=== PATIENT | female | born 1985 | race Caucasian/White ===

== ENCOUNTER 2016-06-06 13:29 | Emergency (ER) | payer OTHER ==
[~2016-06-06] VITALS: Ht 165.1 cm; Wt 85.3 kg
[~2016-06-06 13:29] MED LIST: CGN1 PO; DIAZ10TA PO; HALO5TAB PO; INDSR/120 PO; NAPR1TAB9 PO; PROP40TA5 PO
[2016-06-06 13:32] VITALS: TEMP 36.9; Ht 165.1 cm; Wt 85.3 kg
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
[2016-06-06] MEDS ORDERED: PROP80CA PO (14:30)
[2016-06-06] MEDS ORDERED: CTP1CL PO (14:35)
[2016-06-06 17:50] VITALS: BP 97/72; PULSE 71; O2SAT 97
== END 2016-06-06 18:39 | disposition home or self-care (01) ==
LOC: C.EDB 13:30 → C.EDA 18:39
DX: F41.9 Anxiety disorder, unspecified (principal); R11.10 Vomiting, unspecified; F43.10 Post-traumatic stress disorder, unspecified

== ENCOUNTER 2016-07-03 03:08 | Emergency (ER) | payer OTHER ==
[~2016-07-03] VITALS: Ht 165.1 cm; Wt 88.9 kg
[~2016-07-03 03:08] MED LIST changes: -CGN1 PO; +CTP1CL PO; -HALO5TAB PO; -INDSR/120 PO; +PROP80CA PO
[2016-07-03 03:21] VITALS: BP 119/77; PULSE 86; TEMP 37.1; O2SAT 94; Ht 165.1 cm; Wt 88.9 kg
[2016-07-03] MEDS ORDERED: SODIUM CHLORIDE 0.9% 1000ML 1,000 ML IV STA (03:34)
[2016-07-03] MEDS ORDERED: ONDANSETRON INJ 2 MG/ML 2 ML VIAL IV STA (03:34)
[2016-07-03] MEDS ORDERED: KETOROLAC TROMETHAMINE 30 MG/ML VIAL IV STA (03:34)
--- NOTE | 2016-07-03 03:52 | EMERGENCY ROOM VISIT NOTE ---
History Report prepared by Georgetteibkenny: Joaquina Chris Under the Supervision of: Dr. Barrington Fernando D.O. First contact with patient: 03:26 Chief Complaint: ILLNESS Stated Complaint: VOMITING,DIARRHEA,DEHYDRATION History of Present Illness The patient is a 31 year old female who presents to the Emergency Room with complaints of multiple episodes of vomiting over the past few days. In the past 2 days she has vomited about 5-6 times. She notes that her vomiting episodes come on suddenly. She also complains of diarrhea over the past 4 days. The patient has a close acquaintance with similar symptoms. Source of History: patient Onset: a few days ago Quality: other (sudden onset episodes) Timing: other (episodic) Associated Symptoms: + diarrhea Review of Systems See HPI for pertinent positives & negatives. A total of 10 systems reviewed and were otherwise negative. Past Medical & Surgical Medical Problems: (1) Paranoia (psychosis) (2) PTSD (post-traumatic stress disorder) (3) Suicidal ideation Family History No pertinent family history Social History Smoking Status: Former Smoker Marital Status: in relationship Housing Status: lives with roommate Current/Historical Medications Scheduled Propranolol Hcl (Propranolol Hcl), 40 TAB PO BID Propranolol Hcl (Propranolol Hcl Er), 80 MG PO BID Scheduled PRN Clonidine Hcl (Catapres), 0.1 MG PO DIRECTED PRN for PRN Diazepam (Valium), 10 MG PO Q8 PRN for PRN Naproxen (Aleve), 220 MG PO DIRECTED PRN for Headache Allergies Coded Allergies: Quetiapine (Unverified Adverse Reaction, Severe, PTSD, HYPERSENSITIVITY., 06/06/16) Risperidone (Unverified Adverse Reaction, Severe, HEADACHE, 06/06/16) Uncoded Allergies: ANTIPSYCHOTIC MEDS (Adverse Reaction, Unknown, HEADACHE, 03/04/16) PT INDICATED THAT SHE DOES NOT REACT WELL WITH NUMEROUS ANTIPSYCHOTIC MEDICATIONS. Physical Exam Vital Signs Date Time Temp Pulse Resp B/P Pulse Ox O2 Delivery O2 Flow Rate FiO2 07/03/16 03:21 37.1 86 18 119/77 94 Room Air Physical Exam CONSTITUTIONAL/VITAL SIGNS: Reviewed / noted above. GENERAL: Non-toxic in appearance. INTEGUMENTARY: Warm, dry, and [place]. HEAD: Normocephalic. EYES: without scleral icterus or trauma. ENT/OROPHARYNX: clear and moist. LYMPHADENOPATHY/NECK: Is supple without lymphadenopathy or meningismus. RESPIRATORY: Lungs clear and equal. CARDIOVASCULAR: Regular rate and rhythm. GI/ABDOMEN: Soft and nontender. No organomegaly or pulsatile mass. No rebound or guarding. Normal bowel sounds. EXTREMITIES: Warm and well perfused. BACK: No CVA tenderness. NEUROLOGICAL: Intact without focal deficits. PSYCHIATRIC: normal affect. MUSCULOSKELETAL: Normally developed with good muscle tone. Medical Decision & Procedures Laboratory Results Test 07/03/16 03:34 Laboratory results as stated above per my review. ED Course 0332: Previous medical records were reviewed. The patient was evaluated in room A10. A complete history and physical examination was performed. 0349: Per nursing staff, the patient declined blood work and an IV. 0400: On reevaluation, the patient is hemodynamically stable. I discussed the results and findings with the patient. She verbalized agreement of the treatment plan. The patient was discharged home. Ordered Zofran Odt 4 mg PO. Medical Decision Differential diagnosis: Etiologies such as gastroenteritis, food borne illness, infections, appendicitis , diverticulitis, inflammatory bowel disease, obstruction, GI bleed, biliary pathology, as well as others were entertained. This is a 31-year-old female who presents to the ED with a chief complaint of vomiting and diarrhea. The patient has vomited several times this morning and had some diarrhea tonight. She denies any other complaints. No abdominal pains. No headaches. Her male friend has similar symptoms. He has also checked into the emergency department. The patient was ordered blood work and fluids and Toradol but declined this. She was given Zofran ODT and discharged. Impression Primary Impression: Vomiting and diarrhea Scribe Attestation The scribe's documentation has been prepared under my direction and personally reviewed by me in its entirety. I confirm that the note above accurately reflects all work, treatment, procedures, and medical decision making performed by me. Departure Information Dispostion Home / Self-Care Referrals No Doctor, Assigned (PCP) Patient Instructions My [facility] Additional Instructions Follow-up with your doctor for further care and evaluation in 1-2 days. Return to the emergency department for worsening or new symptoms or any concerns. You have been examined and treated today on an emergency basis only. This is not a substitute for, or an effort to provide, complete comprehensive medical care. It is impossible to recognize and treat all injuries or illnesses in a single emergency department visit. It is therefore important that you follow up closely with your doctor. Call as soon as possible for an appointment.
[2016-07-03] MEDS ORDERED: ONDANSETRON 4MG OD TAB PO ONE (04:00)
== END 2016-07-03 04:03 | disposition home or self-care (01) ==
LOC: C.EDB 03:09 → C.EDA 04:03
DX: R11.10 Vomiting, unspecified (principal); R19.7 Diarrhea, unspecified; F22 Delusional disorders; Z87.891 Personal history of nicotine dependence; Z79.899 Other long term (current) drug therapy; Z88.8 Allergy status to other drugs, medicaments and biological substances

== ENCOUNTER 2016-07-09 02:15 | Emergency (ER) | payer OTHER ==
[2016-07-09 02:17] VITALS: TEMP 36.9; Ht 165.1 cm
[2016-07-09] MEDS ORDERED: IBUPROFEN 600 MG TAB PO STA (02:25)
[2016-07-09] MEDS ORDERED: ONDANSETRON 4MG OD TAB PO ONE (02:30)
[2016-07-09] MEDS ORDERED: ONDANSETRON HOME PACK 4MG OD TAB PO ONE (02:45)
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
[2016-07-09] MEDS ORDERED: MOTRIN HOME PACK 600 MG (4)BTL PO ONE (03:00)
[2016-07-09 03:03] VITALS: BP 117/65; PULSE 68; O2SAT 98
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
== END 2016-07-09 03:00 | disposition home or self-care (01) ==
LOC: C.EDB 02:16 → C.EDA 03:00
DX: S93.402A Sprain of unspecified ligament of left ankle, initial encounter (principal); X50.1XXA Overexertion from prolonged static or awkward postures, initial encounter; W19.XXXA Unspecified fall, initial encounter; R11.0 Nausea

== ENCOUNTER 2016-08-23 15:59 | Emergency (ER) | payer OTHER ==
[~2016-08-23] VITALS: Ht 167.6 cm; Wt 87.5 kg
[2016-08-23 16:11] VITALS: TEMP 37; Ht 167.6 cm; Wt 87.5 kg
[2016-08-23] MEDS ORDERED: SODIUM CHLORIDE 0.9% 1000ML 1,000 ML IV STA (16:28)
[2016-08-23] MEDS ORDERED: OPTIRAY 320 IV PRN (16:45)
[2016-08-23 16:58] LABS: BASO % 0.4 %; BASO ABS # 0.04 K/uL (0-0.2); COMPLETE YES; EOS % 0.7 %; IG% 0.3 %; LYMPH % 36.4 %; MEAN CELL VOLUME 85.1 fL (80-100); MEAN CORPUSCULAR HEMOGLOBIN 30.5 pg (25-34); MEAN CORPUSCULAR HGB CONC 35.9 g/dl (32-36); MEAN PLATELET VOLUME 10.1 fL (7.4-10.4); MONO % 7.8 %; NEUT % 54.4 %; PLATELET COUNT 278 K/uL (130-400); RED BLOOD COUNT 4.82 M/uL (4.2-5.4); WHITE BLOOD COUNT 10.98 K/uL (4.8-10.8)
[2016-08-23 17:15] LABS: BUN/CREATININE RATIO 22.1 (10-20); C-REACTIVE PROTEIN 0.35 mg/dl (0-0.29); CREATININE 0.8 mg/dl (0.60-1.20)
[2016-08-23] MEDS ORDERED: LISD30CA4 PO (17:17)
[2016-08-23 17:22] LABS: URINE APPEARANCE CLEAR (CLEAR); URINE BILIRUBIN NEG (NEG); URINE COLOR DK YELLOW; URINE EPITHELIAL CELL AUTO >30 /lpf (0-5); URINE NITRITE NEG (NEG); URINE SPECIFIC GRAVITY 1.015 (1.000-1.030); UROBILINOGEN NEG (NEG); ZZUR CULT IF INDIC CLEAN CATCH NO
[2016-08-23 17:37] LABS: POTASSIUM 3.9 mmol/L (3.5-5.1)
[2016-08-23 17:52] LABS: MANUAL MICROSCOPIC REQUIRED? NO; REVIEW REQ? NO
--- NOTE | 2016-08-23 18:15 | DIAGNOSTIC IMAGING REPORT ---
CT ABD/PELVIS IV CONTRAST ONLY CLINICAL HISTORY: Right lower quadrant abdominal pain COMPARISON STUDY: None. TECHNIQUE: Following the IV administration of 94 mL of Optiray-320, CT scan of the abdomen and pelvis was performed from the lung bases to the proximal femurs. Images are reviewed in the axial, sagittal, and coronal planes. IV contrast was administered without complication. CT DOSE: 435.12 mGy.cm FINDINGS: Lower chest: The heart is normal in size and configuration, without pericardial effusion. The lung bases and pleural spaces are clear. Liver: The contrast-enhanced liver is normal in size, contour, and attenuation. There is no intrahepatic biliary ductal dilatation. The hepatic veins and portal veins are patent. Gallbladder: Unremarkable. Spleen: Normal in size and attenuation. Pancreas: Unremarkable. Adrenal glands: Unremarkable. Kidneys: There is symmetric renal cortical enhancement. The kidneys are normal in size without hydronephrosis. Bowel: There are no transition zones indicate bowel obstruction. The appendix appears normal. There is no evidence of acute diverticulitis. Peritoneum: There is no intraperitoneal free air or abdominal ascites. There is a small fat-containing umbilical hernia. Vasculature: The abdominal aorta is normal in course and caliber. Adenopathy: None. Pelvic viscera: The bladder, and pelvic viscera are unremarkable. Skeletal structures: No destructive osseous lesions are seen. IMPRESSION: 1. No acute intra-abdominal or pelvic findings 2. No evidence of bowel obstruction. No evidence of free air 3. Normal appendix 4. No evidence of acute diverticulitis. Electronically signed by: Kelby Velasquez M.D. 08/23/2016 6:13 PM Dictated Date/Time: 08/23/2016 6:09 PM
--- NOTE | 2016-08-23 18:37 | EMERGENCY ROOM VISIT NOTE ---
History First contact with patient: 16:19 Chief Complaint: ABDOMINAL PAIN Stated Complaint: RT LOWER ABDMONINAL PAIN,- [facility] REFERR[facility] History of Present Illness The patient is a 31 year old female who presents to the Emergency Department by private vehicle for evaluation of her RIGHT lower quadrant abdominal pain. The patient reports that she isn't having diarrhea for the past month. In addition , she reports that she wakes in the morning and feels nauseated, particularly in the setting of anxiety. She reports a significant past medical history PTSD. She's had no worsening symptoms for that otherwise. She was seen at a walk-in clinic today and was directed to the emergency Department for tenderness in the RIGHT lower quadrant. She denies any previous abdominal surgeries other than tubal ligation. The patient rates her current discomfort as a 7/10. She denies any fevers, chills, chest pain, palpitations, shortness of breath, dizziness, lightheadedness, hematochezia, melena, hematuria, or dysuria. Review of Systems A complete 10-point Review of Systems was discussed with the patient, with pertinent positives and negatives listed in the History of Present Illness. All remaining Review of Systems questions can be considered negative unless otherwise specified. Past Medical/Surgical History Medical Problems: (1) Paranoia (psychosis) (2) PTSD (post-traumatic stress disorder) (3) Suicidal ideation Family History No pertinent family history Social History Smoking Status: Current Every Day Smoker Smokeless Tobacco Use: No Marital Status: in relationship Housing Status: lives with roommate Current/Historical Medications Scheduled Lisdexamfetamine Dimesylate (Vyvanse), 30 MG PO DAILY Propranolol Hcl (Propranolol Hcl), 40 MG PO QAM Propranolol Hcl (Propranolol Hcl Er), 80 MG PO DAILY/UD Scheduled PRN Diazepam (Valium), 10 MG PO Q8 PRN for PRN Ondasetron Odt (Zofran Odt), 1 TAB SL Q6 PRN for Nausea or Vomiting Allergies Coded Allergies: Quetiapine (Unverified Adverse Reaction, Severe, PTSD, HYPERSENSITIVITY., 07/09/16) Risperidone (Unverified Adverse Reaction, Severe, HEADACHE, 07/09/16) Uncoded Allergies: ANTIPSYCHOTIC MEDS (Adverse Reaction, Unknown, HEADACHE, 03/04/16) PT INDICATED THAT SHE DOES NOT REACT WELL WITH NUMEROUS ANTIPSYCHOTIC MEDICATIONS. Physical Exam Vital Signs Date Time Temp Pulse Resp B/P Pulse Ox O2 Delivery O2 Flow Rate FiO2 08/23/16 18:48 73 18 133/81 99 Room Air 08/23/16 16:11 37.0 68 16 127/51 99 Room Air Pain Rating (0-10): 7 Physical Exam VITAL SIGNS - Vital signs and nursing notes were reviewed. GENERAL - 31-year-old female appearing her stated age who is in no acute distress. Communicates well with provider and answers questions appropriately. LUNGS - Chest wall symmetric without accessory muscle use, intercostals retractions, or central cyanosis. Normal vesicular breath sounds CTA B/L. No wheezes, rales, or rhonchi appreciated. CARDIAC - RRR with S1/S2. No murmur, rubs, or gallops appreciated. ABDOMEN - Abdominal contour obese and without pulsations or visible masses. BS normoactive all four quadrants. Moderate tenderness to palpation appreciated RIGHT lower quadrant. No guarding. No Rebound Tenderness. Negative Rovsing's. Negative Hyde's. No palpable masses, hepatosplenomegaly, or ascites noted. PSYCH - A&Ox3 and cooperates fully with examiner. Pt is very pleasant and interacts well with examiner. Medical Decision & Procedures ER Provider Diagnostic Interpretation: Radiological imaging and reports were reviewed by myself. Radiologist's Interpretation as follows: CT ABD/PELVIS IV CONTRAST ONLY CLINICAL HISTORY: Right lower quadrant abdominal pain COMPARISON STUDY: None. TECHNIQUE: Following the IV administration of 94 mL of Optiray-320, CT scan of the abdomen and pelvis was performed from the lung bases to the proximal femurs. Images are reviewed in the axial, sagittal, and coronal planes. IV contrast was administered without complication. CT DOSE: 435.12 mGy.cm FINDINGS: Lower chest: The heart is normal in size and configuration, without pericardial effusion. The lung bases and pleural spaces are clear. Liver: The contrast-enhanced liver is normal in size, contour, and attenuation. There is no intrahepatic biliary ductal dilatation. The hepatic veins and portal veins are patent. Gallbladder: Unremarkable. Spleen: Normal in size and attenuation. Pancreas: Unremarkable. Adrenal glands: Unremarkable. Kidneys: There is symmetric renal cortical enhancement. The kidneys are normal in size without hydronephrosis. Bowel: There are no transition zones indicate bowel obstruction. The appendix appears normal. There is no evidence of acute diverticulitis. Peritoneum: There is no intraperitoneal free air or abdominal ascites. There is a small fat-containing umbilical hernia. Vasculature: The abdominal aorta is normal in course and caliber. Adenopathy: None. Pelvic viscera: The bladder, and pelvic viscera are unremarkable. Skeletal structures: No destructive osseous lesions are seen. IMPRESSION: 1. No acute intra-abdominal or pelvic findings 2. No evidence of bowel obstruction. No evidence of free air 3. Normal appendix 4. No evidence of acute diverticulitis. Laboratory Results 08/23/16 16:49 Red Blood Count 4.82, Mean Corpuscular Volume 85.1, Mean Corpuscular Hemoglobin 30.5, Mean Corpuscular Hemoglobin Concent 35.9, Mean Platelet Volume 10.1, Neutrophils (%) (Auto) 54.4, Lymphocytes (%) (Auto) 36.4, Monocytes (%) (Auto) 7.8, Eosinophils (%) (Auto) 0.7, Basophils (%) (Auto) 0.4, Neutrophils # (Auto) 5.97, Lymphocytes # (Auto) 4.00, Monocytes # (Auto) 0.86, Eosinophils # (Auto) 0.08, Basophils # (Auto) 0.04 08/23/16 16:49 Test 08/23/16 16:49 08/23/16 17:02 White Blood Count 10.98 K/uL (4.8-10.8) Red Blood Count 4.82 M/uL (4.2-5.4) Hemoglobin 14.7 g/dL (12.0-16.0) Hematocrit 41.0 % (37-47) Mean Corpuscular Volume 85.1 fL (80-100) Mean Corpuscular Hemoglobin 30.5 pg (25-34) Mean Corpuscular Hemoglobin Concent 35.9 g/dl (32-36) Platelet Count 278 K/uL (130-400) Mean Platelet Volume 10.1 fL (7.4-10.4) Neutrophils (%) (Auto) 54.4 % Lymphocytes (%) (Auto) 36.4 % Monocytes (%) (Auto) 7.8 % Eosinophils (%) (Auto) 0.7 % Basophils (%) (Auto) 0.4 % Neutrophils # (Auto) 5.97 K/uL (1.4-6.5) Lymphocytes # (Auto) 4.00 K/uL (1.2-3.4) Monocytes # (Auto) 0.86 K/uL (0.11-0.59) Eosinophils # (Auto) 0.08 K/uL (0-0.5) Basophils # (Auto) 0.04 K/uL (0-0.2) RDW Standard Deviation 37.1 fL (36.4-46.3) RDW Coefficient of Variation 12.0 % (11.5-14.5) Immature Granulocyte % (Auto) 0.3 % Immature Granulocyte # (Auto) 0.03 K/uL (0.00-0.02) Anion Gap 6.0 mmol/L (3-11) Est Creatinine Clear Calc Drug Dose 113.5 ml/min Estimated GFR () 113.9 Estimated GFR (Non- 98.2 BUN/Creatinine Ratio 22.1 (10-20) Calcium Level 9.0 mg/dl (8.5-10.1) Total Bilirubin 0.4 mg/dl (0.2-1) Aspartate Amino Transf (AST/SGOT) 9 U/L (15-37) Alanine Aminotransferase (ALT/SGPT) 19 U/L (12-78) Alkaline Phosphatase 68 U/L (45-117) C-Reactive Protein 0.35 mg/dl (0-0.29) Total Protein 7.7 gm/dl (6.4-8.2) Albumin 3.8 gm/dl (3.4-5.0) Globulin 3.9 gm/dl (2.5-4.0) Albumin/Globulin Ratio 1.0 (0.9-2) Lipase 137 U/L (73-393) Urine Color DK YELLOW Urine Appearance CLEAR (CLEAR) Urine pH 6.0 (4.5-7.5) Urine Specific [place] 1.015 (1.000-1.030) Urine Protein NEG (NEG) Urine Glucose (UA) NEG (NEG) Urine Ketones 1+ (NEG) Urine Occult Blood NEG (NEG) Urine Nitrite NEG (NEG) Urine Bilirubin NEG (NEG) Urine Urobilinogen NEG (NEG) Urine Leukocyte Esterase TRACE (NEG) Urine WBC (Auto) 5-10 /hpf (0-5) Urine RBC (Auto) 0-4 /hpf (0-4) Urine Hyaline Casts (Auto) 10-30 /lpf (0-5) Urine Epithelial Cells (Auto) >30 /lpf (0-5) Urine Bacteria (Auto) NEG (NEG) Medications Administered Medications (Trade) Dose Ordered Sig/Jesusita Route Start Time Stop Time Status Last Admin Dose Admin Sodium Chloride (Nss 1000ml) 1,000 ml @ 999 mls/hr Q1H1M STAT IV 08/23/16 16:28 08/23/16 17:28 DC 08/23/16 16:28 999 MLS/HR ED Course Patient was seen and evaluated by myself. Labs were drawn, saline lock in place. Patient was hydrated with 1000 mL of normal saline. CT of the abdomen and pelvis with IV contrast was ordered. Laboratory results demonstrate a mild leukocytosis. The patient is not anemic. There are no significant electrolyte abnormalities. Urinalysis suggests contamination. CT results above. Laboratory results and imaging studies were reviewed with the patient who acknowledges understanding. The patient was encouraged to follow-up with gastroenterology for ongoing symptoms. She was educated on worrisome symptoms for return visit to the emergency department. Patient discharged home in good condition. Medical Decision Given the patient's presentation and exam findings, I did elect to perform the above-mentioned workup. The patient presents today with pain in the RIGHT lower quadrant. She is had diarrhea for the past month. She gets occasional episodes of nausea as well. The patient does have a significant psych history. I questioned the patient is experiencing some irritable bowel symptoms. Her CT scan does not suggest any acute findings otherwise. She will follow closely with business analysis specialist from today's visit. She will return in the setting of any changing or worsening symptoms. Patient discharged home afebrile and in good condition. In the evaluation and treatment of this patient, the following differential diagnoses were considered: Appendicitis, Diverticulitis, Diverticulosis, Colitis , Ischemic Colitis, Inflammatory Bowel Disease, Irritable Bowel Disease, Ovarian Torsion, Ovarian Cyst, Ectopic, Kidney Stone, Pyelonephritis, Hydronephrosis, Cholecystitis, Ascending Cholangitis, Choledocholithiasis, GERD. Impression Primary Impression: Abdominal pain Additional Impression: Diarrhea Departure Information Dispostion Home / Self-Care Condition GOOD Prescriptions Ondasetron Odt (ZOFRAN ODT) 4 Mg Tab 1 TAB SL Q6 Y for Nausea or Vomiting for 5 Days, #20 TAB Prov: Ar Ray, KAIDEN 08/23/16 Referrals No Doctor, Assigned (PCP) Fred Cardenas D.O. Patient Instructions [facility] Additional Instructions You have been seen in the emergency department for abdominal pain and ongoing diarrhea. Please follow-up with gastroenterology as discussed. You have been prescribed Zofran to be used for any nausea or vomiting. Take as prescribed. For pain control, you can use the following cjzj-yze-cohnaor medicines (if >12 yo): - Regular strength (325mg/tab) Tylenol (acetaminophen) 2 tabs every 4-6 hours as needed. Do not exceed 12 tablets in a 24 hour period. Avoid taking more than 4 grams (4000 mg) of Tylenol per day. This includes any other sources of acetaminophen you may take on a regular basis. - Regular strength (200 mg/tab) Advil (ibuprofen) 1-2 tabs every 4-6 hours as needed. Do not exceed a dose of 3200 mg per day. Return for any changing or worsening symptoms. Problem Qualifiers Primary Impression: Abdominal pain Abdominal location: right lower quadrant Qualified Codes: R10.31 - Right lower quadrant pain Additional Impression: Diarrhea Diarrhea type: unspecified type Qualified Codes: R19.7 - Diarrhea, unspecified
[2016-08-23] MEDS ORDERED: ONDA4TAB10 SL (18:45)
[2016-08-23 18:48] VITALS: BP 133/81; PULSE 73; O2SAT 99
== END 2016-08-23 19:06 | disposition home or self-care (01) ==
LOC: C.EDB 16:02
DX: R10.31 Right lower quadrant pain (principal); R19.7 Diarrhea, unspecified; D72.829 Elevated white blood cell count, unspecified; F43.10 Post-traumatic stress disorder, unspecified; F17.200 Nicotine dependence, unspecified, uncomplicated; Z79.899 Other long term (current) drug therapy; Z88.8 Allergy status to other drugs, medicaments and biological substances

== ENCOUNTER → 2016-09-09 | Outpatient (CLI) | payer OTHER ==
[~2016-09-09] MED LIST changes: +AMOX875T PO; +ASTN; +CEPH500C2 PO; +CPROT OTL; +DIAZ10TA3 PO; +DICY20TA10 PO; +LISD30CA4 PO; +LISD70CA; +LISD70CA PO; -NAPR1TAB9 PO; +OMEP20CA9 PO; +PROP120C PO; +SENN-65 PO
--- NOTE | 2016-09-09 11:25 | DIAGNOSTIC IMAGING REPORT ---
ABDOMINAL ULTRASOUND, RIGHT UPPER QUADRANT HISTORY: R19.7 [id number] Abdominal pain, chronic, right lower quadra. COMPARISON: Abdomen and pelvis CT 08/23/2016. FINDINGS: Pancreas: The pancreas demonstrates a normal echotexture. Liver: Unremarkable. Gallbladder: No gallbladder wall thickening. No gallstones. CBD: 3 mm. Right kidney: No hydronephrosis. IMPRESSION: No significant abnormality identified within the right upper quadrant. Electronically signed by: Willian Hodgson M.D. 09/09/2016 11:23 AM Dictated Date/Time: 09/09/2016 11:22 AM
== END | disposition home or self-care (01) ==
LOC: C.ULTR 10:52
PROVIDERS: ATTEND Registered Nurse
DX: R10.31 Right lower quadrant pain (principal); R19.7 Diarrhea, unspecified; R11.2 Nausea with vomiting, unspecified

== ENCOUNTER → 2016-09-12 | Day surgery (SDC) | payer OTHER | END | disposition home or self-care (01) | LOC: C.GI 09:19 | PROVIDERS: ATTEND Internal Medicine | DX: Z53.8 Procedure and treatment not carried out for other reasons (principal) ==

== ENCOUNTER 2016-09-21 13:02 | Emergency (ER) | payer OTHER ==
[~2016-09-21] VITALS: Ht 167.6 cm; Wt 85.4 kg
[~2016-09-21 13:02] MED LIST changes: -AMOX875T PO; -ASTN; -CEPH500C2 PO; -CPROT OTL; -CTP1CL PO; -DIAZ10TA3 PO; -DICY20TA10 PO; -LISD70CA; -LISD70CA PO; -OMEP20CA9 PO; -PROP120C PO; -SENN-65 PO
[2016-09-21 13:06] VITALS: TEMP 36.6; Ht 167.6 cm; Wt 85.4 kg
[2016-09-21] MEDS ORDERED: OMEP20CA9 PO (13:37)
[2016-09-21] MEDS ORDERED: CTP1CL PO (13:37)
[2016-09-21] MEDS ORDERED: DICY20TA10 PO (13:37)
[2016-09-21] MEDS ORDERED: LISD70CA PO (13:37)
[2016-09-21] MEDS ORDERED: PROP120C PO (13:37)
[2016-09-21] MEDS ORDERED: SODIUM CHLORIDE 0.9% 1000ML 1,000 ML IV STA ×2 (14:11)
[2016-09-21] MEDS ORDERED: ONDANSETRON INJ 2 MG/ML 2 ML VIAL IV STA (14:11)
[2016-09-21 14:22] LABS: BASO % 0.4 %; BASO ABS # 0.05 K/uL (0-0.2); COMPLETE YES; EOS % 0.5 %; HEMATOCRIT 41.7 % (37-47); IG% 0.2 %; LYMPH % 37.8 %; LYMPH ABS # 4.48 K/uL (1.2-3.4); MEAN CELL VOLUME 86.2 fL (80-100); MEAN CORPUSCULAR HEMOGLOBIN 29.1 pg (25-34); MEAN CORPUSCULAR HGB CONC 33.8 g/dl (32-36); MEAN PLATELET VOLUME 10.2 fL (7.4-10.4); MONO % 6.6 %; NEUT % 54.5 %; PLATELET COUNT 314 K/uL (130-400); RED BLOOD COUNT 4.84 M/uL (4.2-5.4); WHITE BLOOD COUNT 11.85 K/uL (4.8-10.8)
[2016-09-21] MEDS: DICYCLOMINE HCL 10 MG/ML 2 ML AMP IM ONE ×2 (14:26→14:39)
--- NOTE | 2016-09-21 14:31 | EMERGENCY ROOM VISIT NOTE ---
History Report prepared by Steffi: Wendy Krishna Under the Supervision of: Dr. Luis Ambriz M.D. First contact with patient: 14:02 Chief Complaint: ABDOMINAL PAIN Stated Complaint: EXTREME ABD PAIN Nursing Triage Summary: triage note: pt reports "i am having heavy intense abd pain in different areas." pt reports "i have had diarrhea and constipation for years and the pain has been every morning for a year and this is the day it has lasted past noon." pt tearful in triage. 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 The patient reports that she has had diffuse abdominal pain for a few months. She states that it has been worse and more consistent since April. She has had diarrhea with this pain, but states that today she is feeling bloated and constipated. Her last bowel movement was this morning. The patient describes her pain as spasming and rates her current pain as a 6.5/10 in severity. She also reports nausea and vomiting every morning with her pain. She takes Zofran as needed and Bentyl every morning. The patient denies fever and urinary symptoms. She has a history of a tubal ligation and denies any other previous abdominal surgeries. She as in the ED on August 23, 2016 and had a negative abdominal CT and lab studies that were relatively benign at that time. On September 09 she has a negative US of the RUQ. She was scheduled to have a colonoscopy on September 12, but never had it done because she could not get a ride home. The patient reports a personal history of GERD and takes omeprazole as needed to manage her symptoms. Source of History: patient Onset: BILL DISTRIBUTOR Position: abdomen (diffuse) Symptom Intensity: 6.5/10 Quality: other (spasming) Timing: waxes/wanes Associated Symptoms: + nausea, + vomiting, No fevers, No urinary symptoms Note: Pt notes abdominal bloating and constipation. Review of Systems See HPI for pertinent positives & negatives. A total of 10 systems reviewed and were otherwise negative. Past Medical & Surgical Medical Problems: (1) Paranoia (psychosis) (2) PTSD (post-traumatic stress disorder) (3) Suicidal ideation Family History Cancer Diabetes mellitus FH: heart disease FHx: lung disease Hypertension Kidney disease Kidney stones Social History Smoking Status: Current Every Day Smoker Smokeless Tobacco Use: No Alcohol Use: occasionally Marital Status: in relationship Housing Status: lives with roommate Occupation Status: employed Current/Historical Medications Scheduled Propranolol Hcl (Propranolol Hcl), 40 MG PO QAM Propranolol Hcl (Propranolol Hcl Er), 120 MG PO BID Sennosides-Docusate Sodium (Senokot S), 2 TAB PO BID Scheduled PRN Clonidine Hcl (Catapres), 0.1 MG PO BID PRN for PRN Diazepam (Valium), 10 MG PO Q8 PRN for PRN Dicyclomine Hcl (Dicyclomine Hcl), 20 MG PO Q6 PRN for PRN Lisdexamfetamine Dimesylate (Vyvanse), 70 MG PO QAM PRN for PTSD Omeprazole (Prilosec), 20 MG PO DAILY PRN for PRN Allergies Coded Allergies: Quetiapine (Unverified Adverse Reaction, Severe, PTSD, HYPERSENSITIVITY., 07/09/16) Risperidone (Unverified Adverse Reaction, Severe, HEADACHE, 07/09/16) Uncoded Allergies: STEROIDS (Allergy, Unknown, UNKNOWN, 09/21/16) ANTIPSYCHOTIC MEDS (Adverse Reaction, Unknown, HEADACHE, 03/04/16) PT INDICATED THAT SHE DOES NOT REACT WELL WITH NUMEROUS ANTIPSYCHOTIC MEDICATIONS. Physical Exam Vital Signs Date Time Temp Pulse Resp B/P Pulse Ox O2 Delivery O2 Flow Rate FiO2 09/21/16 19:18 67 18 124/83 98 09/21/16 15:41 50 18 136/80 100 Room Air 09/21/16 13:06 36.6 73 18 153/109 94 Room Air Physical Exam GENERAL: Patient is tearful, in no acute distress. HEENT: No acute trauma, normocephalic atraumatic, mucous membranes moist, no nasal congestion, no scleral icterus. NECK: No stridor, no adenopathy, no meningismus, trachea is midline. LUNGS: Clear to auscultation bilaterally, no wheeze, no rhonchi, breath sounds equal. HEART: Without murmurs gallops or rubs, regular rate and rhythm. ABDOMEN: Soft, nontender, bowel sounds positive, no hernias, no peritonitis. EXTREMITIES: No cyanosis or edema, full range of motion of all the joints without pain or difficulty, no signs for acute trauma. NEUROLOGIC: Oriented x 3, no acute motor or sensory deficits, no focal weakness. SKIN: No rash, no jaundice, no diaphoresis. Medical Decision & Procedures ER Provider Diagnostic Interpretation: Urine dip shows ketones consistent with dehydration, no evidence for infection, no blood. Radiology results as stated below per my review and radiologist interpretation: ABDOMEN 2VIEW W/PA CHEST RTN CLINICAL HISTORY: Abdominal pain COMPARISON STUDY: No previous studies for comparison. FINDINGS: The erect chest reveals no evidence of free air. There is no evidence of focal pulmonary consolidation.] Erect and supine views of the abdomen reveal no abnormally dilated loops of large or small bowel. There are no transition zone to indicate bowel obstruction. There are nonspecific right pelvic basin calcifications, likely representing phleboliths. There is a transitional vertebra present. IMPRESSION: No evidence of bowel obstruction. No evidence of free air. Electronically signed by: Kelby Velasquez M.D. 09/21/2016 3:20 PM Dictated Date/Time: 09/21/2016 3:[address] ABD/PELVIS IV CONTRAST ONLY CLINICAL HISTORY: Right lower quadrant abdominal pain COMPARISON STUDY: CT scan dated 08/23/2016, abdominal series dated 09/21/2016 TECHNIQUE: Following the IV administration of 116 mL of Optiray-320, CT scan of the abdomen and pelvis was performed from the lung bases to the proximal femurs. Images are reviewed in the axial, sagittal, and coronal planes. IV contrast was administered without complication. CT DOSE: 495.15 mGy.cm FINDINGS: Lower chest: The heart is normal in size and configuration, without pericardial effusion. The lung bases and pleural spaces are clear. Liver: The contrast-enhanced liver is normal in size, contour, and attenuation. There is no intrahepatic biliary ductal dilatation. The hepatic veins and portal veins are patent. Gallbladder: Unremarkable. Spleen: Normal in size and attenuation. Pancreas: Unremarkable. Adrenal glands: Unremarkable. Kidneys: There is symmetric renal cortical enhancement. The kidneys are normal in size without hydronephrosis. Bowel: There are no transition zones indicate bowel obstruction. The appendix appears normal. There is no acute diverticulitis. Peritoneum: There is no intraperitoneal free air or abdominal ascites. Vasculature: The abdominal aorta is normal in course and caliber. Adenopathy: None. Pelvic viscera: The bladder, and pelvic viscera are unremarkable. Skeletal structures: No destructive osseous lesions are seen. IMPRESSION: 1. No acute intra-abdominal or pelvic findings 2. No evidence of bowel obstruction. No evidence of free air 3. Normal appendix 4. No evidence of acute diverticulitis. Electronically signed by: Kelby Velasquez M.D. 09/21/2016 5:55 PM Dictated Date/Time: 09/21/2016 5:52 PM Laboratory Results 09/21/16 14:00 Red Blood Count 4.84, Mean Corpuscular Volume 86.2, Mean Corpuscular Hemoglobin 29.1, Mean Corpuscular Hemoglobin Concent 33.8, Mean Platelet Volume 10.2, Neutrophils (%) (Auto) 54.5, Lymphocytes (%) (Auto) 37.8, Monocytes (%) (Auto) 6.6, Eosinophils (%) (Auto) 0.5, Basophils (%) (Auto) 0.4, Neutrophils # (Auto) 6.46, Lymphocytes # (Auto) 4.48, Monocytes # (Auto) 0.78, Eosinophils # (Auto) 0.06, Basophils # (Auto) 0.05 09/21/16 14:00 Test 09/21/16 14:00 09/21/16 18:22 White Blood Count 11.85 K/uL (4.8-10.8) Red Blood Count 4.84 M/uL (4.2-5.4) Hemoglobin 14.1 g/dL (12.0-16.0) Hematocrit 41.7 % (37-47) Mean Corpuscular Volume 86.2 fL (80-100) Mean Corpuscular Hemoglobin 29.1 pg (25-34) Mean Corpuscular Hemoglobin Concent 33.8 g/dl (32-36) Platelet Count 314 K/uL (130-400) Mean Platelet Volume 10.2 fL (7.4-10.4) Neutrophils (%) (Auto) 54.5 % Lymphocytes (%) (Auto) 37.8 % Monocytes (%) (Auto) 6.6 % Eosinophils (%) (Auto) 0.5 % Basophils (%) (Auto) 0.4 % Neutrophils # (Auto) 6.46 K/uL (1.4-6.5) Lymphocytes # (Auto) 4.48 K/uL (1.2-3.4) Monocytes # (Auto) 0.78 K/uL (0.11-0.59) Eosinophils # (Auto) 0.06 K/uL (0-0.5) Basophils # (Auto) 0.05 K/uL (0-0.2) RDW Standard Deviation 38.1 fL (36.4-46.3) RDW Coefficient of Variation 12.0 % (11.5-14.5) Immature Granulocyte % (Auto) 0.2 % Immature Granulocyte # (Auto) 0.02 K/uL (0.00-0.02) Anion Gap 11.0 mmol/L (3-11) Est Creatinine Clear Calc Drug Dose 96.5 ml/min Estimated GFR () 94.9 Estimated GFR (Non- 81.9 BUN/Creatinine Ratio 13.9 (10-20) Calcium Level 10.7 mg/dl (8.5-10.1) Total Bilirubin 0.6 mg/dl (0.2-1) Aspartate Amino Transf (AST/SGOT) 8 U/L (15-37) Alanine Aminotransferase (ALT/SGPT) 19 U/L (12-78) Alkaline Phosphatase 75 U/L (45-117) Total Protein 8.3 gm/dl (6.4-8.2) Albumin 4.1 gm/dl (3.4-5.0) Globulin 4.2 gm/dl (2.5-4.0) Albumin/Globulin Ratio 1.0 (0.9-2) Lipase 102 U/L (73-393) Urine Color YELLOW Urine Appearance CLEAR (CLEAR) Urine pH 5.0 (4.5-7.5) Urine Specific [place] 1.012 (1.000-1.030) Urine Protein NEG (NEG) Urine Glucose (UA) NEG (NEG) Urine Ketones 1+ (NEG) Urine Occult Blood NEG (NEG) Urine Nitrite NEG (NEG) Urine Bilirubin NEG (NEG) Urine Urobilinogen NEG (NEG) Urine Leukocyte Esterase NEG (NEG) Laboratory results reviewed by me. Medications Administered Medications (Trade) Dose Ordered Sig/Jesusita Route Start Time Stop Time Status Last Admin Dose Admin Ondansetron HCl 4 mg 4 mg NOW STAT IV 09/21/16 14:11 09/21/16 14:14 DC 09/21/16 14:27 4 MG Sodium Chloride 1,000 ml @ 200 mls/hr Q5H STAT IV 09/21/16 14:11 09/21/16 19:10 DC 09/21/16 14:39 200 MLS/HR Sodium Chloride (Nss 1000ml) 1,000 ml @ 999 mls/hr Q1H1M STAT IV 09/21/16 14:11 09/21/16 15:11 DC 09/21/16 14:28 999 MLS/HR Dicyclomine HCl (Bentyl Cap) 20 mg NOW ONCE PO 09/21/16 14:45 09/21/16 14:46 DC 09/21/16 14:47 20 MG Senna/Docusate Sodium (Senokot S Tab) 2 tab NOW ONCE PO 09/21/16 18:30 09/21/16 18:31 DC 09/21/16 19:06 2 TAB ED Course 1402: The patient was evaluated in room B5. A complete history and physical exam was performed. 1411: NSS 1000 ml @ 999 mls/hr IV, NSS 1000 ml @ 200 mls/hr IV, Zofran 4 mg IV 1445: Bentyl 20 mg PO 1642: I reassessed the patient at this time. She consented to getting a CT scan. 1829: I reassessed the patient at this time. She is feeling better and resting comfortably. I discussed the results and treatment plan with the patient. I answered all pertaining questions that she had. She expressed understanding and verbalized agreement. The patient will be discharged home. 1830: Senokot S tab 2 tabs PO Medical Decision Differential diagnoses includes IBS, inflammatory bowel disease, constipation, acute on chronic pain, viral illness, dehydration, electrolyte imbalance, UTI, pancreatitis, diverticulitis, biliary colic. There is a mild leukocytosis which could be consistent with infection or just her pain. No concerning anemia. No significant electrolyte abnormality, kidney failure, hepatitis or pancreatitis. testing is negative. Urinalysis does not show evidence for infection. Abdominal series shows some mild constipation, no bowel obstruction, no free air or pneumonia. Abdominal and pelvis CT does not show any evidence for acute diverticulitis or acute appendicitis. There was no bowel obstruction. The patient received oral Bentyl, IV saline, IV Zofran and oral Senokot. She is more comfortable. The patient is being discharged. She has had ongoing abdominal pain for some time. She is trying to reschedule her colonoscopy. She has Bentyl and Zofran at home. I will add Senokot for some possible constipation. A bland diet was suggested. If worsening, she can return. The cause of her discomfort is not clear by today's workup. Impression Primary Impression: Diffuse abdominal pain Scribe Attestation The scribe's documentation has been prepared under my direction and personally reviewed by me in its entirety. I confirm that the note above accurately reflects all work, treatment, procedures, and medical decision making performed by me. Departure Information Dispostion Home / Self-Care Prescriptions Sennosides-Docusate Sodium (SENOKOT S) 1 Tab Tab 2 TAB PO BID, #25 TAB 3 Refills Prov: Luis Ambriz M.D. 09/21/16 Referrals No Doctor, Assigned (PCP) Forms Call Back Authorization, HOME CARE DOCUMENTATION FORM, IMPORTANT VISIT INFORMATION Patient Instructions My [facility] Additional Instructions continue the Bentyl and Zofran as before use Senokot 2 tab 2-3 times per day for constipation stay well hydrated see your doctor to set up a colonoscopy return if worsening testing today was ok as we discussed
[2016-09-21 14:40] LABS: BUN/CREATININE RATIO 13.9 (10-20); CALCIUM 10.7 mg/dl (8.5-10.1); CREATININE 0.93 mg/dl (0.60-1.20); POTASSIUM 4.1 mmol/L (3.5-5.1)
[2016-09-21] MEDS ORDERED: DICYCLOMINE HCL 10 MG CAP PO ONE (14:45)
--- NOTE | 2016-09-21 15:21 | DIAGNOSTIC IMAGING REPORT ---
ABDOMEN 2VIEW W/PA CHEST RTN CLINICAL HISTORY: Abdominal pain COMPARISON STUDY: No previous studies for comparison. FINDINGS: The erect chest reveals no evidence of free air. There is no evidence of focal pulmonary consolidation.] Erect and supine views of the abdomen reveal no abnormally dilated loops of large or small bowel. There are no transition zone to indicate bowel obstruction. There are nonspecific right pelvic basin calcifications, likely representing phleboliths. There is a transitional vertebra present. IMPRESSION: No evidence of bowel obstruction. No evidence of free air. Electronically signed by: Kelby Velasquez M.D. 09/21/2016 3:20 PM Dictated Date/Time: 09/21/2016 3:18 PM
--- NOTE | 2016-09-21 17:57 | DIAGNOSTIC IMAGING REPORT ---
CT ABD/PELVIS IV CONTRAST ONLY CLINICAL HISTORY: Right lower quadrant abdominal pain COMPARISON STUDY: CT scan dated 08/23/2016, abdominal series dated 09/21/2016 TECHNIQUE: Following the IV administration of 116 mL of Optiray-320, CT scan of the abdomen and pelvis was performed from the lung bases to the proximal femurs. Images are reviewed in the axial, sagittal, and coronal planes. IV contrast was administered without complication. CT DOSE: 495.15 mGy.cm FINDINGS: Lower chest: The heart is normal in size and configuration, without pericardial effusion. The lung bases and pleural spaces are clear. Liver: The contrast-enhanced liver is normal in size, contour, and attenuation. There is no intrahepatic biliary ductal dilatation. The hepatic veins and portal veins are patent. Gallbladder: Unremarkable. Spleen: Normal in size and attenuation. Pancreas: Unremarkable. Adrenal glands: Unremarkable. Kidneys: There is symmetric renal cortical enhancement. The kidneys are normal in size without hydronephrosis. Bowel: There are no transition zones indicate bowel obstruction. The appendix appears normal. There is no acute diverticulitis. Peritoneum: There is no intraperitoneal free air or abdominal ascites. Vasculature: The abdominal aorta is normal in course and caliber. Adenopathy: None. Pelvic viscera: The bladder, and pelvic viscera are unremarkable. Skeletal structures: No destructive osseous lesions are seen. IMPRESSION: 1. No acute intra-abdominal or pelvic findings 2. No evidence of bowel obstruction. No evidence of free air 3. Normal appendix 4. No evidence of acute diverticulitis. Electronically signed by: Kelby Velasquez M.D. 09/21/2016 5:55 PM Dictated Date/Time: 09/21/2016 5:52 PM
[2016-09-21] MEDS ORDERED: OPTIRAY 320 IV PRN (18:00)
[2016-09-21] MEDS ORDERED: DOCUSATE SODIUM/SENNA 50/8.6MG TAB PO ONE (18:30)
[2016-09-21] MEDS ORDERED: SENN-65 PO (18:38)
[2016-09-21 18:39] LABS: URINE APPEARANCE CLEAR (CLEAR); URINE BILIRUBIN NEG (NEG); URINE COLOR YELLOW; URINE NITRITE NEG (NEG); URINE SPECIFIC GRAVITY 1.012 (1.000-1.030); UROBILINOGEN NEG (NEG); ZZUR CULT IF INDIC CLEAN CATCH NO
[2016-09-21 18:41] LABS: MANUAL MICROSCOPIC REQUIRED? NO; REVIEW REQ? NO
[2016-09-21 19:18] VITALS: BP 124/83; PULSE 67; O2SAT 98
== END 2016-09-21 19:19 | disposition home or self-care (01) ==
LOC: C.EDB 13:03
DX: R10.9 Unspecified abdominal pain (principal); F22 Delusional disorders; F17.200 Nicotine dependence, unspecified, uncomplicated; Z79.899 Other long term (current) drug therapy; Z88.8 Allergy status to other drugs, medicaments and biological substances; Z80.9 Family history of malignant neoplasm, unspecified; Z83.3 Family history of diabetes mellitus; Z82.49 Family history of ischemic heart disease and other diseases of the circulatory system; Z84.1 Family history of disorders of kidney and ureter

== ENCOUNTER 2016-10-15 02:40 | Emergency (ER) | payer OTHER ==
[~2016-10-15] VITALS: Ht 167.6 cm; Wt 77.6 kg
[~2016-10-15 02:40] MED LIST changes: +CTP1CL PO; +DICY20TA10 PO; -LISD30CA4 PO; +LISD70CA PO; +OMEP20CA9 PO; +PROP120C PO; -PROP80CA PO; +SENN-65 PO
[2016-10-15 02:48] VITALS: TEMP 36.9; Ht 167.6 cm; Wt 77.6 kg
[2016-10-15] MEDS ORDERED: CEPH500C2 PO (03:12)
[2016-10-15 03:15] VITALS: BP 104/69; PULSE 61; O2SAT 98
[2016-10-15] MEDS ORDERED: CEPHALEXIN 500MG HOME PACK 1 EA BTL PO ONE (03:15)
--- NOTE | 2016-10-15 04:24 | EMERGENCY ROOM VISIT NOTE ---
History First contact with patient: 02:47 Chief Complaint: ILLNESS Stated Complaint: PAIN/BOIL FOOT/BODY ACHES/SOB History of Present Illness The patient is a 31 year old female who presents to the Emergency Room with complaints of right foot infection for the past few days who went to urgent care and gave her Bactrim. Patient states it is still red and swollen. Patient denies fevers, chest pain, dyspnea, numbness, tingling. Patient states was to make sure it is not spreading. Tetanus is current Review of Systems See HPI for pertinent positives & negatives. A total of 10 systems reviewed and were otherwise negative. Past Medical/Surgical History Medical Problems: (1) Paranoia (psychosis) (2) PTSD (post-traumatic stress disorder) (3) Suicidal ideation Family History Cancer Diabetes mellitus FH: heart disease FHx: lung disease Hypertension Kidney disease Kidney stones Social History Smoking Status: Former Smoker Alcohol Use: occasionally Marital Status: in relationship Housing Status: lives with roommate Occupation Status: employed Current/Historical Medications Scheduled Cephalexin Monohydrate (Keflex), 500 MG PO QID Propranolol Hcl (Propranolol Hcl), 40 MG PO QAM Propranolol Hcl (Propranolol Hcl Er), 120 MG PO BID Scheduled PRN Clonidine Hcl (Catapres), 0.1 MG PO BID PRN for PRN Diazepam (Valium), 10 MG PO Q8 PRN for PRN Dicyclomine Hcl (Dicyclomine Hcl), 20 MG PO Q6 PRN for PRN Omeprazole (Prilosec), 20 MG PO DAILY PRN for PRN Allergies Coded Allergies: Quetiapine (Unverified Adverse Reaction, Severe, PTSD, HYPERSENSITIVITY., 10/15/16) Risperidone (Unverified Adverse Reaction, Severe, HEADACHE, 10/15/16) Uncoded Allergies: STEROIDS (Allergy, Unknown, UNKNOWN, 09/21/16) ANTIPSYCHOTIC MEDS (Adverse Reaction, Unknown, HEADACHE, 03/04/16) PT INDICATED THAT SHE DOES NOT REACT WELL WITH NUMEROUS ANTIPSYCHOTIC MEDICATIONS. Physical Exam Vital Signs Date Time Temp Pulse Resp B/P Pulse Ox O2 Delivery O2 Flow Rate FiO2 10/15/16 03:15 61 16 104/69 98 10/15/16 02:48 36.9 76 18 118/73 97 Room Air Pain Rating (0-10): 9.0 Physical Exam VITALS: Vitals are noted on the nurse's note and reviewed by myself. Vital signs stable. GENERAL: Pleasant anxious-appearing female, in no acute distress, nondiaphoretic , well-developed well-nourished. SKIN: Capillary reflex less than 2 seconds. HEENT: Normocephalic. PERRLA. EOMI. Nares patent. Mucous membranes moist. Neck is supple without nuchal rigidity. HEART: Regular rate and rhythm without murmurs gallops or rubs. LUNGS: Clear to auscultation bilaterally without wheezes, rales or rhonchi. No retractions or accessory muscle use. ABDOMEN: Positive bowel sounds x 4. Normal tympanic percussion. Soft, nontender, without masses or organomegaly. Hyde sign negative. No guarding or rebound tenderness. MUSCULOSKELETAL: No gross musculoskeletal defects. No pedal edema. No calf tenderness. Right foot just above great toe erythematous and edematous 2 cm x 2 cm no palpable abscess or lymphangitis concerning for cellulitis NEURO: Patient was alert and oriented to person place and time. Normal sensation to light and sharp touch. No focal neurological deficits. Medical Decision & Procedures Medications Administered Medications (Trade) Dose Ordered Sig/Jesusita Route Start Time Stop Time Status Last Admin Dose Admin Cephalexin Monohydrate (Keflex 500MG Home Pack) 1 homepack NOW ONCE PO 10/15/16 03:15 10/15/16 03:16 DC 10/15/16 03:15 1 HOMEPACK ED Course Prior records reviewed and summarized as above. Triage Nursing notes reviewed. Additional history obtained from friend. The patient's history was concerning for swelling and redness of the skin. Differential diagnosis: Etiologies such as cellulitis, abscess, MRSA infection, DVT, necrotizing fasciitis, dermatitis, drug eruption, as well as others were entertained.. Physical examination: The physical examination was consistent with cellulitis ER treatment provided: Keflex, patient is already Bactrim On reassessment the patient felt better. Diagnostics interpreted by me: Deferred This appears to be isolated cellulitis. Patient states the areas not gotten any better and was concerned. I did add Keflex in for better strep coverage. She is advised to follow-up with her family care in a few days or here in the ER sooner for spreading infection, fevers, severe pain, worsening signs or symptoms or as needed. Patient had no palpable abscess on exam. She is well- appearing. By the evaluation outlined above emergent etiologies such as abscess, necrotizing fasciitis, DVT, as well as others were deemed relatively unlikely. The pt informed about the findings as listed above. All questions were answered and pleased with the treatment. Return instructions were outlined and the patient was discharged in stable condition. Outpatient prescription management: Keflex Referral: The patient was referred back to primary care physician for follow-up in 2 to 3 days for a recheck of the current condition. Medical Decision As above Impression Primary Impression: Cellulitis of right foot Departure Information Dispostion Home / Self-Care Condition GOOD Prescriptions Cephalexin Monohydrate (KEFLEX) 500 Mg Cap 500 MG PO QID for 9 Days, #36 CAP Prov: Alesia Dominguez .KAIDEN 10/15/16 Forms WORK / SCHOOL INSTRUCTIONS, HOME CARE DOCUMENTATION FORM, IMPORTANT VISIT INFORMATION Patient Instructions Cellulitis - [facility] Additional Instructions Cephalexin(Keflex) 500mg: Take one pill four times daily for 10 days for your skin infection. All antibiotics can cause diarrhea. If this occurs and you feel worse or it does not resolve in 1-2 days follow up with your doctor or return to the Emergency Department as this could be signs of serious underlying problems. Any medication can cause an allergic reaction, stop the pills immediately and return to the ER for rash, hives, breathing difficulties, or swelling. Continue Trimethoprim-Sulfamethoxazole(Bactrim DS): Take one pill twice daily for your skin infection. All antibiotics can cause diarrhea. If this occurs and you feel worse or it does not resolve in 1-2 days follow up with your doctor or return to the Emergency Department as this could be signs of serious underlying problems. Any medication can cause an allergic reaction, stop the pills immediately and return to the ER for rash, hives, breathing difficulties, or swelling. Ibuprofen(Motrin, Advil) may be used for fever or pain. Use 600mg every six hours as needed. Take with food. Avoid using more than 2400mg in a 24 hour period. Do not use 2400mg per day for more than three consecutive days without physician direction. Prolonged inappropriate use can lead to stomach upset or ulcers. (AND/OR) Acetaminophen(Tylenol) may be used for fever or pain. Use 1000mg every six hours as needed. Avoid using more than 3000mg in a 24 hour period. Warm compresses to the affected area 4 times daily for 15-20 minutes. Rest and drink plenty of fluids. Continue current medications. Return to the ER for severe pain, persistent fevers, spreading redness, or any worsening of your condition. Follow up with your primary physician within 2-3 days for a recheck of the current condition.
== END 2016-10-15 03:20 | disposition home or self-care (01) ==
LOC: C.EDB 02:42 → C.EDA 03:20
DX: L03.115 Cellulitis of right lower limb (principal); Z87.891 Personal history of nicotine dependence; Z83.3 Family history of diabetes mellitus; Z82.49 Family history of ischemic heart disease and other diseases of the circulatory system; Z84.1 Family history of disorders of kidney and ureter

== ENCOUNTER → 2016-10-22 | Outpatient (CLI) | payer OTHER ==
[~2016-10-22] MED LIST changes: +AMOX875T PO; +ASTN; +CEPH500C2 PO; +CPROT OTL; +DIAZ10TA3 PO; +LISD70CA; -LISD70CA PO; -SENN-65 PO
[2016-10-22 15:03] LABS: BASO % 0.2 %; BASO ABS # 0.02 K/uL (0-0.2); COMPLETE YES; EOS % 0.9 %; HEMATOCRIT 40.7 % (37-47); IG% 0.2 %; LYMPH % 41.5 %; LYMPH ABS # 3.94 K/uL (1.2-3.4); MEAN CELL VOLUME 86.8 fL (80-100); MEAN CORPUSCULAR HEMOGLOBIN 29.4 pg (25-34); MEAN CORPUSCULAR HGB CONC 33.9 g/dl (32-36); MEAN PLATELET VOLUME 10.4 fL (7.4-10.4); MONO % 8.1 %; NEUT % 49.1 %; PLATELET COUNT 318 K/uL (130-400); RED BLOOD COUNT 4.69 M/uL (4.2-5.4)
[2016-10-22 15:20] LABS: ALT/SGPT 17 U/L (12-78); AST/SGOT 9 U/L (15-37); BLOOD UREA NITROGEN 15 mg/dl (7-18); BUN/CREATININE RATIO 12.5 (10-20); CALCIUM 8.8 mg/dl (8.5-10.1); CARBON DIOXIDE 25 mmol/L (21-32); CHLORIDE 106 mmol/L (98-107); GLUCOSE 101 mg/dl (70-99); POTASSIUM 3.9 mmol/L (3.5-5.1); SODIUM 139 mmol/L (136-145)
[2016-10-22 15:30] LABS: ALB/GLOB RATIO 0.9 (0.9-2); ALKALINE PHOSPHATASE 76 U/L (45-117); CHOLESTEROL 247 mg/dl (0-200); CHOLESTEROL/HDL RATIO 6.9; HDL CHOLESTEROL 36 mg/dl; LDL CHOLESTEROL CALCULATED 173 mg/dl; THYROID STIMULATING HORMONE 0.562 uIu/ml (0.300-4.500); TRIGLYCERIDES 190 mg/dl (0-150); VERY LOW DENSITY LIPOPROT CALC 38 mg/dl
[2016-10-25 20:38] LABS: CHLAMYDIA TRACH RNA*** NOT DETECTED (NOT DETECTED); GC (NEIS GONORRHOEAE)RNA** NOT DETECTED (NOT DETECTED); HSV TYPE 1 DNA Not Detected (Not Detected); HSV TYPE 1&2 DNA SOURCE Whole Blood; HSV TYPE 2 DNA Not Detected (Not Detected)
--- NOTE | 2016-10-29 10:50 | CODING QUERY MEDICAL NECESSITY ---
CQSUPPORTING DIAGNOSIS NEEDED A supporting diagnosis is required for the test/procedure performed on this patient in order for us to be reimbursed by the patient's insurance. Please provide a supporting diagnosis for the following test/procedure listed below next to the test name along with your signature. *If there is no additional diagnosis for this patient that would support the following test/procedure please document that below next to the test/procedure. Test(s)/Procedure(s) that require a supporting diagnosis: DOS 10/22/16 SCREENING FOR SEXUALLY TRANSMITTED DISEASE Provider Signature: Date: Thank you Dainn Garber Health Information Management Once completed, please kindly fax back to [phone] For questions please call [phone]
== END ==
LOC: C.LAB1850 12:46
PROVIDERS: ATTEND Internal Medicine
DX: Z72.51 High risk heterosexual behavior (principal); Z00.00 Encounter for general adult medical examination without abnormal findings

== ENCOUNTER 2016-12-05 09:33 | Emergency (ER) | payer OTHER ==
[~2016-12-05] VITALS: Ht 165.1 cm; Wt 81.6 kg
[~2016-12-05 09:33] MED LIST changes: -AMOX875T PO; -ASTN; -CEPH500C2 PO; -CPROT OTL; -DIAZ10TA3 PO; -LISD70CA
[2016-12-05 09:48] VITALS: O2SAT 96
[2016-12-05 09:52] VITALS: TEMP 36.6; Ht 165.1 cm; Wt 81.6 kg
--- NOTE | 2016-12-05 10:30 | DIAGNOSTIC IMAGING REPORT ---
CHEST ONE VIEW PORTABLE CLINICAL HISTORY: Chest Pain pain COMPARISON STUDY: 09/21/2016 FINDINGS: The bones soft tissues and hemidiaphragms are normal. The cardiomediastinal silhouette is normal. The lungs are clear. The pulmonary vasculature is normal. IMPRESSION: Negative chest. The above report was generated using voice recognition software. It may contain grammatical, syntax or spelling errors. Electronically signed by: Melecio Dooley M.D. 12/05/2016 10:29 AM Dictated Date/Time: 12/05/2016 10:29 AM
[2016-12-05] MEDS ORDERED: DIAZEPAM 5MG TAB PO STA ×2 (10:36→11:06)
[2016-12-05 12:01] LABS: BASO % 0.5 %; BASO ABS # 0.05 K/uL (0-0.2); COMPLETE YES; EOS % 0.9 %; IG% 0.2 %; LYMPH % 30.1 %; LYMPH ABS # 3.21 K/uL (1.2-3.4); MEAN CELL VOLUME 86.9 fL (80-100); MEAN CORPUSCULAR HEMOGLOBIN 30.7 pg (25-34); MEAN CORPUSCULAR HGB CONC 35.4 g/dl (32-36); MEAN PLATELET VOLUME 10.2 fL (7.4-10.4); MONO % 7.2 %; NEUT % 61.1 %; PLATELET COUNT 299 K/uL (130-400); RED BLOOD COUNT 4.72 M/uL (4.2-5.4); WHITE BLOOD COUNT 10.67 K/uL (4.8-10.8)
[2016-12-05 12:18] LABS: BLOOD UREA NITROGEN 10 mg/dl (7-18); BUN/CREATININE RATIO 10.3 (10-20); CALCIUM 9.4 mg/dl (8.5-10.1); CARBON DIOXIDE 28 mmol/L (21-32); CHLORIDE 105 mmol/L (98-107); CREATININE 0.92 mg/dl (0.60-1.20); GLUCOSE 96 mg/dl (70-99); POTASSIUM 3.7 mmol/L (3.5-5.1); SODIUM 138 mmol/L (136-145)
[2016-12-05 13:56] VITALS: BP 105/76; PULSE 58; O2SAT 95
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
== END 2016-12-05 14:05 | disposition home or self-care (01) ==
LOC: EDBD 09:33 → C.EDB 09:34
DX: F41.9 Anxiety disorder, unspecified (principal); F22 Delusional disorders; F43.10 Post-traumatic stress disorder, unspecified; Z80.9 Family history of malignant neoplasm, unspecified; Z83.3 Family history of diabetes mellitus; Z82.49 Family history of ischemic heart disease and other diseases of the circulatory system; Z84.1 Family history of disorders of kidney and ureter; Z87.891 Personal history of nicotine dependence; Z79.899 Other long term (current) drug therapy

== ENCOUNTER 2016-12-10 18:44 | Emergency (ER) | payer OTHER ==
[~2016-12-10] VITALS: Ht 165.1 cm; Wt 80.7 kg
[~2016-12-10 18:44] MED LIST changes: -CTP1CL PO; -DIAZ10TA PO; -DICY20TA10 PO; -OMEP20CA9 PO
[2016-12-10 18:51] VITALS: TEMP 37; Ht 165.1 cm; Wt 80.7 kg
[2016-12-10] MEDS ORDERED: LORAZEPAM 1 MG TAB SL STA (19:03)
[2016-12-10 19:28] LABS: URINE APPEARANCE CLEAR (CLEAR); URINE BILIRUBIN NEG (NEG); URINE COLOR YELLOW; URINE NITRITE NEG (NEG); URINE SPECIFIC GRAVITY 1.016 (1.000-1.030); UROBILINOGEN NEG (NEG)
[2016-12-10 19:29] LABS: MANUAL MICROSCOPIC REQUIRED? NO; REVIEW REQ? NO
[2016-12-10] MEDS ORDERED: DIAZEPAM 5MG TAB PO ONE (19:30)
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
[2016-12-10] MEDS ORDERED: DIAZEPAM INJ 5 MG/ML 2 ML CARP IM STA (19:47)
[2016-12-10 19:56] LABS: BENZODIAZEPINE, URINE POS (NEG); COCAINE,URINE NEG (NEG); PHENCYCLIDINE, URINE NEG (NEG)
[2016-12-10 21:43] LABS: BASO % 0.2 %; BASO ABS # 0.03 K/uL (0-0.2); COMPLETE YES; EOS % 0.7 %; HEMATOCRIT 39.6 % (37-47); IG% 0.2 %; LYMPH % 24.4 %; LYMPH ABS # 3.15 K/uL (1.2-3.4); MEAN CORPUSCULAR HEMOGLOBIN 29.7 pg (25-34); MEAN CORPUSCULAR HGB CONC 34.1 g/dl (32-36); MEAN PLATELET VOLUME 10.3 fL (7.4-10.4); MONO % 7.1 %; NEUT % 67.4 %; PLATELET COUNT 267 K/uL (130-400); RED BLOOD COUNT 4.55 M/uL (4.2-5.4)
[2016-12-10 22:03] LABS: ALT/SGPT 19 U/L (12-78); BLOOD UREA NITROGEN 8 mg/dl (7-18); BUN/CREATININE RATIO 7.5 (10-20); CARBON DIOXIDE 27 mmol/L (21-32); CHLORIDE 104 mmol/L (98-107); GLUCOSE 124 mg/dl (70-99); POTASSIUM 3.5 mmol/L (3.5-5.1); SODIUM 137 mmol/L (136-145)
[2016-12-10 22:13] LABS: ALKALINE PHOSPHATASE 66 U/L (45-117); AST/SGOT 8 U/L (15-37); THYROID STIMULATING HORMONE 0.502 uIu/ml (0.300-4.500)
[2016-12-10] MEDS ORDERED: PROPRANOLOL HCL 80 MG LA CAP PO STA (22:16)
[2016-12-10] MEDS ORDERED: PROPRANOLOL HCL 60 MG LA CAP PO STA (22:26)
[2016-12-10] MEDS ORDERED: PROPRANOLOL HCL 10 MG TAB PO ONE (22:30)
[2016-12-11] MEDS ORDERED: DIAZEPAM 5MG TAB PO ONE (01:30)
--- NOTE | 2016-12-11 03:34 | EMERGENCY ROOM VISIT NOTE ---
ED Visit Note Patient will be sent to the [facility] and is medically clear Problem List Medical Problems: (1) Paranoia (psychosis) Status: Chronic (2) PTSD (post-traumatic stress disorder) Status: Chronic (3) Suicidal ideation Status: Resolved Current/Historical Medications Scheduled Propranolol Hcl (Propranolol Hcl), 40 MG PO BID Propranolol Hcl (Propranolol Hcl Er), 120 MG PO QAM Allergies Coded Allergies: Quetiapine (Verified Adverse Reaction, Severe, PTSD, HYPERSENSITIVITY., ) Risperidone (Verified Adverse Reaction, Severe, HEADACHE, 12/10/16) Uncoded Allergies: STEROIDS (Allergy, Unknown, UNKNOWN, 09/21/16) ANTIPSYCHOTIC MEDS (Adverse Reaction, Unknown, HEADACHE, 03/04/16) PT INDICATED THAT SHE DOES NOT REACT WELL WITH NUMEROUS ANTIPSYCHOTIC MEDICATIONS. Vital Signs Date Time Temp Pulse Resp B/P (MAP) Pulse Ox O2 Delivery O2 Flow Rate FiO2 12/10/16 23:15 72 20 121/72 94 Room Air 12/10/16 22:00 86 22 115/82 100 Room Air 12/10/16 18:51 37.0 72 18 127/93 96 Room Air Laboratory Results 12/10/16 21:26 Red Blood Count 4.55, Mean Corpuscular Volume 87.0, Mean Corpuscular Hemoglobin 29.7, Mean Corpuscular Hemoglobin Concent 34.1, Mean Platelet Volume 10.3, Neutrophils (%) (Auto) 67.4, Lymphocytes (%) (Auto) 24.4, Monocytes (%) (Auto) 7.1, Eosinophils (%) (Auto) 0.7, Basophils (%) (Auto) 0.2, Neutrophils # (Auto) 8.70, Lymphocytes # (Auto) 3.15, Monocytes # (Auto) 0.91, Eosinophils # (Auto) 0.09, Basophils # (Auto) 0.03 12/10/16 21:26 Test 12/10/16 19:05 12/10/16 21:26 Urine Color YELLOW Urine Appearance CLEAR (CLEAR) Urine pH 5.0 (4.5-7.5) Urine Specific [place] 1.016 (1.000-1.030) Urine Protein NEG (NEG) Urine Glucose (UA) NEG (NEG) Urine Ketones NEG (NEG) Urine Occult Blood NEG (NEG) Urine Nitrite NEG (NEG) Urine Bilirubin NEG (NEG) Urine Urobilinogen NEG (NEG) Urine Leukocyte Esterase NEG (NEG) Urine Test NEG (NEG) Urine Opiates Screen NEG (NEG) Urine Methadone, Qualitative NEG (NEG) Urine Barbiturates NEG (NEG) Urine Phencyclidine (PCP) Level NEG (NEG) Ur Amphetamine/Methamphetamine NEG (NEG) MDMA (Ecstasy) Screen NEG (NEG) Urine Benzodiazepines Screen POS (NEG) Urine Cocaine Metabolite NEG (NEG) Urine Marijuana (THC) POS (NEG) White Blood Count 12.90 K/uL (4.8-10.8) Red Blood Count 4.55 M/uL (4.2-5.4) Hemoglobin 13.5 g/dL (12.0-16.0) Hematocrit 39.6 % (37-47) Mean Corpuscular Volume 87.0 fL (80-100) Mean Corpuscular Hemoglobin 29.7 pg (25-34) Mean Corpuscular Hemoglobin Concent 34.1 g/dl (32-36) Platelet Count 267 K/uL (130-400) Mean Platelet Volume 10.3 fL (7.4-10.4) Neutrophils (%) (Auto) 67.4 % Lymphocytes (%) (Auto) 24.4 % Monocytes (%) (Auto) 7.1 % Eosinophils (%) (Auto) 0.7 % Basophils (%) (Auto) 0.2 % Neutrophils # (Auto) 8.70 K/uL (1.4-6.5) Lymphocytes # (Auto) 3.15 K/uL (1.2-3.4) Monocytes # (Auto) 0.91 K/uL (0.11-0.59) Eosinophils # (Auto) 0.09 K/uL (0-0.5) Basophils # (Auto) 0.03 K/uL (0-0.2) RDW Standard Deviation 39.1 fL (36.4-46.3) RDW Coefficient of Variation 12.2 % (11.5-14.5) Immature Granulocyte % (Auto) 0.2 % Immature Granulocyte # (Auto) 0.02 K/uL (0.00-0.02) Anion Gap 6.0 mmol/L (3-11) Est Creatinine Clear Calc Drug Dose 77.8 ml/min Estimated GFR () 77.5 Estimated GFR (Non- 66.8 BUN/Creatinine Ratio 7.5 (10-20) Calcium Level 9.0 mg/dl (8.5-10.1) Total Bilirubin 0.4 mg/dl (0.2-1) Direct Bilirubin < 0.1 mg/dl (0-0.2) Aspartate Amino Transf (AST/SGOT) 8 U/L (15-37) Alanine Aminotransferase (ALT/SGPT) 19 U/L (12-78) Alkaline Phosphatase 66 U/L (45-117) Total Protein 7.5 gm/dl (6.4-8.2) Albumin 3.6 gm/dl (3.4-5.0) Thyroid Stimulating Hormone (TSH) 0.502 uIu/ml (0.300-4.500) Ethyl Alcohol mg/dL < 3.0 mg/dl (0-3) Medications Administered Medications (Trade) Dose Ordered Sig/Jesusita Route Start Time Stop Time Status Last Admin Dose Admin Diazepam (Valium Tab) 5 mg NOW ONCE PO 12/10/16 19:30 12/10/16 19:31 DC 12/10/16 19:30 5 MG Propranolol HCl (Inderal Tab) 20 mg NOW ONCE PO 12/10/16 22:30 12/10/16 22:31 DC 12/10/16 22:47 20 MG Propranolol HCl (Inderal [place]) 120 mg ONE STAT PO 12/10/16 22:26 12/10/16 22:27 DC 12/10/16 22:47 120 MG Diazepam (Valium Tab) 5 mg NOW ONCE PO 12/11/16 01:30 12/11/16 01:31 DC 12/11/16 01:50 5 MG Departure Information Impression Primary Impression: Agitation Additional Impressions: PTSD (post-traumatic stress disorder) Acute anxiety Dispostion Still a Patient Referrals No Doctor, Assigned (PCP) Patient Instructions My [facility] Problem Qualifiers
[2016-12-11] MEDS ORDERED: PROPRANOLOL HCL 10 MG TAB PO ONE (08:45)
[2016-12-11 11:32] VITALS: BP 104/68; PULSE 79; O2SAT 95
[2016-12-13 23:12] LABS: HYDROXYETHYLFLURAZEPAM CONF NEGATIVE NG/ML (CUTOFF=50); HYDROXYMIDAZOLAM NEGATIVE NG/ML (CUTOFF=50); HYDROXYTRIAZOLAM CONF NEGATIVE NG/ML (CUTOFF=50); TEMAZEPAM CONF 109 NG/ML (CUTOFF=50)
== END 2016-12-11 11:32 ==
LOC: C.EDB 18:48 → C.EDA 12-11 11:32
DX: R45.1 Restlessness and agitation (principal); F41.9 Anxiety disorder, unspecified; F43.10 Post-traumatic stress disorder, unspecified; Z79.899 Other long term (current) drug therapy; Z88.8 Allergy status to other drugs, medicaments and biological substances; Z80.9 Family history of malignant neoplasm, unspecified; Z83.3 Family history of diabetes mellitus; Z82.49 Family history of ischemic heart disease and other diseases of the circulatory system; Z84.1 Family history of disorders of kidney and ureter

== ENCOUNTER 2017-02-24 11:10 | Emergency (ER) | payer OTHER ==
[~2017-02-24] VITALS: Ht 165.1 cm; Wt 67.7 kg
[2017-02-24 11:33] VITALS: Ht 165.1 cm; Wt 67.7 kg
[2017-02-24] MEDS ORDERED: HALOPERIDOL LACTATE 5 MG/ML 1 ML VIAL IM STA (11:45)
[2017-02-24] MEDS ORDERED: LORAZEPAM 2 MG/ML 1 ML VIAL IM STA (11:45)
[2017-02-24] MEDS ORDERED: LORAZEPAM 2 MG TAB PO STA (12:00)
[2017-02-24 12:30] LABS: URINE APPEARANCE CLEAR (CLEAR); URINE BILIRUBIN NEG (NEG); URINE COLOR DK YELLOW; URINE EPITHELIAL CELL AUTO >30 /lpf (0-5); URINE NITRITE NEG (NEG); URINE PH 5.5 (4.5-7.5); URINE SPECIFIC GRAVITY 1.027 (1.000-1.030); UROBILINOGEN NEG (NEG)
[2017-02-24 12:31] LABS: MANUAL MICROSCOPIC REQUIRED? NO; REVIEW REQ? YES
--- NOTE | 2017-02-24 12:49 | EMERGENCY ROOM VISIT NOTE ---
History Report prepared by Steffi: Wendy Krishna Under the Supervision of: Dr. Castillo Rod M.D. First contact with patient: 11:14 Chief Complaint: MENTAL HEALTH EVALUATION Stated Complaint: MENTAL HEALTH History of Present Illness The patient is a 31 year old white female with a past medical history of bipolar disorder, PTSD, anxiety, depression, and schizoaffective disorder who presents to the ED for a mental health evaluation. The patient was brought to the ED by the [place] police. The officer states that the patient lives across from the [employer]. Employees at the [employer] heard yelling coming from her apartment and thought that there were two women arguing. They called police. When police arrived on scene they found the patient alone, rambling and yelling. The patient states that she has just been very stressed out lately. She denies any current SI or HI. Patient keeps referencing [employer] and the "[employer] Report" stating that she has "figured it all out." She also talks about going on a quest. Source of History: patient, police Onset: IND[employer]GEMENT TE[employer] Position: other (mental health) Timing: constant Note: PT rambling and yelling. Pt denies SI or HI. Review of Systems See HPI for pertinent positives and negatives. A total of ten systems were reviewed and were otherwise negative. Past Medical & Surgical Medical Problems: (1) Paranoia (psychosis) (2) PTSD (post-traumatic stress disorder) (3) Suicidal ideation Family History Cancer Diabetes mellitus FH: heart disease FHx: lung disease Hypertension Kidney disease Kidney stones Social History Smoking Status: Never Smoker Alcohol Use: occasionally Marital Status: in relationship Housing Status: lives with roommate Occupation Status: employed Current/Historical Medications Scheduled Propranolol Hcl (Propranolol Hcl), 40 MG PO BID Propranolol Hcl (Propranolol Hcl Er), 120 MG PO QAM Allergies Coded Allergies: Quetiapine (Verified Adverse Reaction, Severe, PTSD, HYPERSENSITIVITY., ) Risperidone (Verified Adverse Reaction, Severe, HEADACHE, 12/10/16) Uncoded Allergies: STEROIDS (Allergy, Unknown, UNKNOWN, 09/21/16) ANTIPSYCHOTIC MEDS (Adverse Reaction, Unknown, HEADACHE, 03/04/16) PT INDICATED THAT SHE DOES NOT REACT WELL WITH NUMEROUS ANTIPSYCHOTIC MEDICATIONS. Physical Exam Vital Signs Date Time Temp Pulse Resp B/P (MAP) Pulse Ox O2 Delivery O2 Flow Rate FiO2 02/24/17 16:22 89 18 96/66 100 Room Air 02/24/17 15:34 89 18 116/81 100 Room Air 02/24/17 13:55 93 18 116/83 100 Room Air 02/24/17 11:33 36.8 124 20 162/117 95 Room Air Physical Exam GENERAL: Awake, alert, well-appearing, NAD HENT: Normocephalic, atraumatic. EYES: Normal conjunctiva. Sclera non-icteric. PERRL, EOMI, gross vision intact. NECK: Supple. No nuchal rigidity. FROM. RESPIRATORY: CTAB, no rhonchi, wheezing, crackles CARDIAC: tachycardic rate, regular rhythm, no MRG ABDOMEN: Soft, NTND, BS+ MSK: No chest wall TTP, no LE edema NEURO: GCS 15, moves all 4s on command SKIN: No rash or jaundice noted. PSYCH: Delusions, paranoia, rapid speech, flight of ideas. Medical Decision & Procedures Laboratory Results 02/24/17 13:25 Red Blood Count 4.14, Mean Corpuscular Volume 85.3, Mean Corpuscular Hemoglobin 30.0, Mean Corpuscular Hemoglobin Concent 35.1, Mean Platelet Volume 9.9, Neutrophils (%) (Auto) 69.2, Lymphocytes (%) (Auto) 22.5, Monocytes (%) (Auto) 7.5, Eosinophils (%) (Auto) 0.3, Basophils (%) (Auto) 0.3, Neutrophils # (Auto) 6.59, Lymphocytes # (Auto) 2.15, Monocytes # (Auto) 0.72, Eosinophils # (Auto) 0.03, Basophils # (Auto) 0.03 02/24/17 13:25 Test 02/24/17 12:04 02/24/17 13:25 Urine Color DK YELLOW Urine Appearance CLEAR (CLEAR) Urine pH 5.5 (4.5-7.5) Urine Specific [place] 1.027 (1.000-1.030) Urine Protein TRACE (NEG) Urine Glucose (UA) NEG (NEG) Urine Ketones 3+ (NEG) Urine Occult Blood 2+ (NEG) Urine Nitrite NEG (NEG) Urine Bilirubin NEG (NEG) Urine Urobilinogen NEG (NEG) Urine Leukocyte Esterase NEG (NEG) Urine WBC (Auto) 1-5 /hpf (0-5) Urine RBC (Auto) 0-4 /hpf (0-4) Urine Hyaline Casts (Auto) 5-10 /lpf (0-5) Urine Epithelial Cells (Auto) >30 /lpf (0-5) Urine Bacteria (Auto) 1+ (NEG) Urine Pathogenic Casts 0-3 GRANULAR CASTS /lpf (0) Urine Mucus PRESENT (NONE PRSENT) Urine Yeast (Auto) (NONE PRSENT) Urine Opiates Screen NEG (NEG) Urine Methadone, Qualitative NEG (NEG) Urine Barbiturates NEG (NEG) Urine Phencyclidine (PCP) Level NEG (NEG) Ur Amphetamine/Methamphetamine NEG (NEG) MDMA (Ecstasy) Screen NEG (NEG) Urine Benzodiazepines Screen POS (NEG) Urine Cocaine Metabolite NEG (NEG) Urine Marijuana (THC) POS (NEG) White Blood Count 9.54 K/uL (4.8-10.8) Red Blood Count 4.14 M/uL (4.2-5.4) Hemoglobin 12.4 g/dL (12.0-16.0) Hematocrit 35.3 % (37-47) Mean Corpuscular Volume 85.3 fL (80-100) Mean Corpuscular Hemoglobin 30.0 pg (25-34) Mean Corpuscular Hemoglobin Concent 35.1 g/dl (32-36) Platelet Count 246 K/uL (130-400) Mean Platelet Volume 9.9 fL (7.4-10.4) Neutrophils (%) (Auto) 69.2 % Lymphocytes (%) (Auto) 22.5 % Monocytes (%) (Auto) 7.5 % Eosinophils (%) (Auto) 0.3 % Basophils (%) (Auto) 0.3 % Neutrophils # (Auto) 6.59 K/uL (1.4-6.5) Lymphocytes # (Auto) 2.15 K/uL (1.2-3.4) Monocytes # (Auto) 0.72 K/uL (0.11-0.59) Eosinophils # (Auto) 0.03 K/uL (0-0.5) Basophils # (Auto) 0.03 K/uL (0-0.2) RDW Standard Deviation 37.1 fL (36.4-46.3) RDW Coefficient of Variation 12.0 % (11.5-14.5) Immature Granulocyte % (Auto) 0.2 % Immature Granulocyte # (Auto) 0.02 K/uL (0.00-0.02) Anion Gap 11.0 mmol/L (3-11) Est Creatinine Clear Calc Drug Dose 87.3 ml/min Estimated GFR () 107.3 Estimated GFR (Non- 92.6 BUN/Creatinine Ratio 13.9 (10-20) Calcium Level 8.6 mg/dl (8.5-10.1) Total Bilirubin 0.5 mg/dl (0.2-1) Direct Bilirubin < 0.1 mg/dl (0-0.2) Aspartate Amino Transf (AST/SGOT) 17 U/L (15-37) Alanine Aminotransferase (ALT/SGPT) 20 U/L (12-78) Alkaline Phosphatase 68 U/L (45-117) Total Protein 7.7 gm/dl (6.4-8.2) Albumin 3.6 gm/dl (3.4-5.0) Thyroid Stimulating Hormone (TSH) 0.453 uIu/ml (0.300-4.500) Salicylates Level 1.8 mg/dl (2.8-20) Acetaminophen Level < 2 ug/ml (10-30) Ethyl Alcohol mg/dL < 3.0 mg/dl (0-3) Laboratory results reviewed by me Medications Administered Medications (Trade) Dose Ordered Sig/Jesusita Route Start Time Stop Time Status Last Admin Dose Admin Lorazepam (Ativan Tab) 2 mg ONE STAT PO 02/24/17 12:00 02/24/17 12:01 DC 02/24/17 12:17 2 MG Diphenhydramine HCl (Benadryl Cap) 50 mg NOW ONCE PO 02/24/17 12:00 02/24/17 12:01 DC 02/24/17 12:17 50 MG Miscellaneous Information (Nursing Verbal Med Order) 1 ea ONE ONCE N/A 02/24/17 13:00 02/24/17 13:01 DC 02/24/17 13:09 1 EA Miscellaneous Information (Nursing Verbal Med Order) 1 ea ONE ONCE N/A 02/24/17 13:00 02/24/17 13:01 DC 02/24/17 13:09 1 EA ECG Indication: toxicologic Rate (beats per minute): 88 Rhythm: normal sinus Findings: T-wave inversion (V3, lead 3), no ectopy, other (normal intervals; normal axis; no contiguous changes) ED Course 1114: The patient was evaluated in room A5. A complete history and physical exam was performed. 1145: Haldol 10 mg IM - pt refused, Ativan 2 mg IM - pt refused. 1200: Benadryl 50 mg PO , Ativan 2 mg PO 1257: The nurse called because the patient was getting more agitated despite PO medications and security in the room. 1300: Haldol 10 mg IM, Ativan 2 mg IM 1800: The patient was signed out to Dr. Edmonds at the change of shift. Medical Decision The patient is a 31 year old white female with a past medical history of bipolar disorder, PTSD, anxiety, depression, and schizoaffective disorder who presents to the ED for a mental health evaluation. Differential diagnosis: Etiologies such as mood disorder, infection, hypoglycemia, electrolyte abnormalities, cardiac sources, intracerebral event, toxicologic, neurologic, as well as others were entertained. Patient was seen and evaluated at the bedside. Patient was able to follow commands and was ambulatory. Patient was actively drinking Powerade. Patient had flight of ideas, pressured speech, clarisa, and delusions. Patient was able to follow some mild commands and was appropriate when I asked to listen to her heart and her lungs. Patient was considered a harm to self and others and required medications sedation. Patient was given medications she was no longer a harm to herself or others. Patient's been cleared medically. Patient is have UDS positive for THC and benzodiazepines. Patient has negative salicylate , Tylenol, and ethanol levels. Patient has yet to become more arousable after her medications at which point she was seen by the evening mental health specialist. I signed out care to the oncoming physician. Medication Reconcilliation Current Medication List: was personally reviewed by me Blood Pressure Screening Patient's blood pressure: Normal blood pressure Impression Primary Impression: Manic episode Additional Impression: Mood disorder Critical Care I have personally spent greater than 35 minutes of critical care time in the direct management of this patient. This includes bedside care, interpretation of diagnostic studies, and testing, discussion with consultants, patient, and family members, and other required patient management activities. This 35 minutes is in excess of all separately billable procedures. Scribe Attestation The scribe's documentation has been prepared under my direction and personally reviewed by me in its entirety. I confirm that the note above accurately reflects all work, treatment, procedures, and medical decision making performed by me. Departure Information Dispostion Still a Patient Referrals No Doctor, Assigned (PCP) Patient Instructions My [facility] Problem Qualifiers
[2017-02-24 12:50] LABS: URINE MUCUS PRESENT (NONE PRSENT); URINE PATH CASTS 0-3 GRANULAR CASTS /lpf (0)
[2017-02-24 12:54] LABS: BENZODIAZEPINE, URINE POS (NEG); COCAINE,URINE NEG (NEG); PHENCYCLIDINE, URINE NEG (NEG)
[2017-02-24] MEDS ORDERED: NURSING VERBAL MED ORDER ONE ×2 (13:00)
[2017-02-24 13:50] LABS: BASO % 0.3 %; BASO ABS # 0.03 K/uL (0-0.2); COMPLETE YES; EOS % 0.3 %; HEMATOCRIT 35.3 % (37-47); IG% 0.2 %; LYMPH % 22.5 %; LYMPH ABS # 2.15 K/uL (1.2-3.4); MEAN CELL VOLUME 85.3 fL (80-100); MEAN CORPUSCULAR HGB CONC 35.1 g/dl (32-36); MEAN PLATELET VOLUME 9.9 fL (7.4-10.4); MONO % 7.5 %; NEUT % 69.2 %; PLATELET COUNT 246 K/uL (130-400); RED BLOOD COUNT 4.14 M/uL (4.2-5.4); WHITE BLOOD COUNT 9.54 K/uL (4.8-10.8)
[2017-02-24 14:21] LABS: ACETAMINOPHEN < 2 ug/ml (10-30); ALT/SGPT 20 U/L (12-78); AST/SGOT 17 U/L (15-37); BLOOD UREA NITROGEN 12 mg/dl (7-18); BUN/CREATININE RATIO 13.9 (10-20); CALCIUM 8.6 mg/dl (8.5-10.1); CARBON DIOXIDE 23 mmol/L (21-32); CHLORIDE 107 mmol/L (98-107); CREATININE 0.84 mg/dl (0.60-1.20); GLUCOSE 107 mg/dl (70-99); POTASSIUM 3.4 mmol/L (3.5-5.1); SODIUM 141 mmol/L (136-145)
[2017-02-24 14:32] LABS: ALKALINE PHOSPHATASE 68 U/L (45-117); THYROID STIMULATING HORMONE 0.453 uIu/ml (0.300-4.500)
[2017-02-24] MEDS ORDERED: ASTN (23:46)
[2017-02-25] VITALS: TEMP 36.8
[2017-02-25] MEDS ORDERED: NURSING VERBAL MED ORDER ONE
--- NOTE | 2017-02-25 02:31 | EMERGENCY ROOM VISIT NOTE ---
ED Visit Note First contact with patient: 17:57 This patient was initially seen by Dr. Rdo. She was signed out to me pending psychiatric evaluation. He stated that the patient appeared manic and required medical sedation with Ativan and Haldol. He did not feel strongly that the patient required hospitalization for psychiatric illness but would need reassessment once the medications wore off. I did eventually evaluate the patient when she was more awake and alert. She is obviously delusional and talks about people coming after her child and the [employer]. She does not display any pressured speech but she does have flight of ideas on my evaluation. The mental health director of casework department evaluated the patient and was concerned about her delusional behavior. We did have can help evaluate the patient for possible 302 commitment. The can help worker did evaluate the patient here. He does know her and states that at baseline she is delusional with fixed delusions about people trying to take away her child. He states that she has been evaluated by her raw sampler yesterday as well as the week before and that she has been functioning normally and does not represent a danger to herself or others at this point. He and his supervisor sanding felt that she does not qualify for 302 commitment. I did reevaluate her and she is awake and alert. She is cooperative. She denies any homicidal or suicidal ideation. She does state that she will follow up with her doctor and therapist and wishes to go home. She was discharged.
[2017-02-25 03:05] VITALS: BP 123/69; PULSE 95; O2SAT 96
[2017-02-26 09:06] LABS: HYDROXYETHYLFLURAZEPAM CONF NEGATIVE NG/ML (CUTOFF=50); HYDROXYMIDAZOLAM NEGATIVE NG/ML (CUTOFF=50); HYDROXYTRIAZOLAM CONF NEGATIVE NG/ML (CUTOFF=50); TEMAZEPAM CONF 620 NG/ML (CUTOFF=50)
== END 2017-02-25 03:07 | disposition home or self-care (01) ==
LOC: EDBD 11:10 → C.EDA 11:11
DX: F30.9 Manic episode, unspecified (principal); Z83.3 Family history of diabetes mellitus; Z82.49 Family history of ischemic heart disease and other diseases of the circulatory system; Z84.1 Family history of disorders of kidney and ureter

== ENCOUNTER 2017-02-27 12:40 | Emergency (ER) | payer OTHER ==
[~2017-02-27] VITALS: Ht 165.1 cm; Wt 78.1 kg
[~2017-02-27 12:40] MED LIST changes: +ASTN
[2017-02-27 12:44] VITALS: TEMP 36.9; Ht 165.1 cm; Wt 78.1 kg
[2017-02-27] MEDS ORDERED: LORAZEPAM 1 MG TAB SL STA ×2 (12:56→23:55)
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
[2017-02-27] MEDS ORDERED: DIAZ10TA3 PO (13:17)
[2017-02-27] MEDS ORDERED: LISD70CA (13:17)
[2017-02-27] MEDS ORDERED: AMOXICILLIN/CLAVULANATE TAB 875 MG TAB PO ONE (13:45)
[2017-02-27 14:04] LABS: URINE APPEARANCE CLEAR (CLEAR); URINE COLOR DK YELLOW; URINE EPITHELIAL CELL AUTO >30 /lpf (0-5); URINE NITRITE NEG (NEG); URINE PH 5.5 (4.5-7.5); URINE SPECIFIC GRAVITY 1.023 (1.000-1.030); UROBILINOGEN NEG (NEG); ZZUR CULT IF INDIC CLEAN CATCH NO
[2017-02-27 14:10] LABS: URINE BILIRUBIN 2+ (NEG)
[2017-02-27 14:11] LABS: MANUAL MICROSCOPIC REQUIRED? NO; REVIEW REQ? NO
[2017-02-27 14:20] LABS: BASO % 0.3 %; BASO ABS # 0.03 K/uL (0-0.2); COMPLETE YES; EOS % 0.3 %; HEMATOCRIT 35.4 % (37-47); IG% 0.3 %; LYMPH % 20.8 %; LYMPH ABS # 2.44 K/uL (1.2-3.4); MEAN CELL VOLUME 86.3 fL (80-100); MEAN CORPUSCULAR HEMOGLOBIN 29.8 pg (25-34); MEAN CORPUSCULAR HGB CONC 34.5 g/dl (32-36); MEAN PLATELET VOLUME 10.2 fL (7.4-10.4); MONO % 8.5 %; NEUT % 69.8 %; PLATELET COUNT 250 K/uL (130-400); WHITE BLOOD COUNT 11.71 K/uL (4.8-10.8)
[2017-02-27 14:31] LABS: BENZODIAZEPINE, URINE POS (NEG); COCAINE,URINE NEG (NEG); PHENCYCLIDINE, URINE NEG (NEG)
[2017-02-27 14:43] LABS: BUN/CREATININE RATIO 11.4 (10-20); CALCIUM 9.1 mg/dl (8.5-10.1); CREATININE 0.83 mg/dl (0.60-1.20); POTASSIUM 3.3 mmol/L (3.5-5.1)
[2017-02-27 14:49] LABS: ACETAMINOPHEN < 2 ug/ml (10-30)
[2017-02-27 14:54] LABS: ALB/GLOB RATIO 0.9 (0.9-2); THYROID STIMULATING HORMONE 0.144 uIu/ml (0.300-4.500)
[2017-02-27] MEDS ORDERED: ACETAMINOPHEN 325 MG TAB PO STA (17:12)
[2017-02-27] MEDS ORDERED: IBUPROFEN 600 MG TAB PO STA (17:12)
[2017-02-27] MEDS: CIPRO 0.2%/HYDROCORTISONE 1% OTIC SUSP 10 ML BTL OT SCH (17:38)
[2017-02-27] MEDS ORDERED: BENZTROPINE MESYLATE 1 MG TAB PO STA (18:14)
[2017-02-27] MEDS ORDERED: PROPRANOLOL HCL 20 MG TAB PO STA (19:19)
[2017-02-27] MEDS ORDERED: LORAZEPAM 1 MG TAB PO STA (19:19)
[2017-02-27] MEDS ORDERED: PROPRANOLOL HCL 10 MG TAB PO ONE (19:26)
[2017-02-27] MEDS ORDERED: CPROT OTL (20:44)
[2017-02-27] MEDS ORDERED: AMOX875T PO (20:44)
[2017-02-27] MEDS: NICOTINE POLACRILEX 2 MG GUM MT PRN (21:48)
[2017-02-28] MEDS: CIPRO 0.2%/HYDROCORTISONE 1% OTIC SUSP 10 ML BTL OT SCH ×2 (00:02→03:27)
--- NOTE | 2017-02-28 00:42 | EMERGENCY ROOM VISIT NOTE ---
ED Visit Note First contact with patient: 20:49 This patient was signed out to me at shift change by Dr. Win. At that point the patient was medically cleared and was awaiting placement. She has received several medications and he Dr. Win felt strongly that she could not go home and he filled out of 302 petition. When I to talked the patient she is much calmer and she says that she feels better after receiving the medications and she feels that she can go home. She has a suicidal or homicidal ideations. I'm concerned about sending her home after reviewing the chart about what she had said earlier. At this point, she is actually agreeable to come in voluntarily she initially would only be admitted here but she is willing to go somewhere else. She did receive additional Ativan while she was here. She is also having an earache and received eardrops. At this point we are pending placement. The first couple places would not except her. She has been cheesy as to where she's gone. While she is here she has been emotionally labile at times cooperative at times while others uncooperative. She has received additional doses of Ativan she's complained about ear ache and receive OxyIR. We are trying to place her voluntarily but she is also exhibiting behavior that's very concerning for inability to care for health self or potential self-harm and if she refuses ultimately need a 302 involuntary commitment. She will be sent about to Dr. Wylie at shift change with placement pending
[2017-02-28] MEDS ORDERED: OXYCODONE HCL IR 5 MG TAB (IMMEDIATE RELEASE) PO STA (00:53)
[2017-02-28] MEDS: NICOTINE POLACRILEX 2 MG GUM MT PRN (02:00)
[2017-02-28] MEDS ORDERED: LORAZEPAM 2 MG TAB PO STA (02:22)
[2017-02-28] MEDS ORDERED: LORAZEPAM 1 MG TAB ONE (02:24)
[2017-02-28] MEDS ORDERED: POTASSIUM CHLORIDE 10 MEQ TABCR PO STA (02:29)
--- NOTE | 2017-02-28 03:10 | EMERGENCY ROOM VISIT NOTE ---
ED Visit Note First contact with patient: 03:09 The case was signed out to me at [facility] awaiting bed placement. 0330: I discussed the case with staff from [facility]. There currently awaiting a callback from [facility] to see if the patient has been accepted. The patient is complaining of more ear pain and was ordered to have additional drops that ear. 0405: [facility] refused to take the patient. 0520: A referral was made to [facility]. They are requesting that the patient's potassium level be redrawn. Unfortunately, the patient has refused another needle stick. She seems to be rapidly cycling and changing her mind. 0610: The patient's morning medications were ordered. She continues to refuse a repeat lab draw for potassium. Paperwork had been signed by Dr. Hall for involuntary commitment. This will be pursued by the staff from [facility]. 0630: The patient has been accepted at [facility] is a 302. She will be transported there by the [place].
[2017-02-28] MEDS ORDERED: DIAZEPAM 5MG TAB PO STA (06:05)
[2017-02-28] MEDS ORDERED: AMOXICILLIN/CLAVULANATE TAB 875 MG TAB PO ONE (06:15)
[2017-02-28] MEDS ORDERED: PROPRANOLOL HCL 10 MG TAB PO ONE (06:15)
[2017-02-28 07:13] VITALS: BP 116/70; PULSE 94; O2SAT 99
--- NOTE | 2017-03-01 14:54 | EMERGENCY ROOM VISIT NOTE ---
ED Visit Note I received this patient in signout at the change of shift from Dr. Wylie, pending mental health bed search. The patient has been accepted at [facility] in [place] and secure transportation arrangements have been made.
[2017-03-03 10:54] LABS: HYDROXYETHYLFLURAZEPAM CONF NEGATIVE NG/ML (CUTOFF=50); HYDROXYMIDAZOLAM NEGATIVE NG/ML (CUTOFF=50); HYDROXYTRIAZOLAM CONF NEGATIVE NG/ML (CUTOFF=50); TEMAZEPAM CONF 710 NG/ML (CUTOFF=50)
== END 2017-02-28 08:04 ==
LOC: C.EDB 12:42 → C.EDA 02-28 08:04
DX: F23 Brief psychotic disorder (principal); R59.9 Enlarged lymph nodes, unspecified; F30.9 Manic episode, unspecified; H60.92 Unspecified otitis externa, left ear; R45.87 Impulsiveness; F43.10 Post-traumatic stress disorder, unspecified; F17.200 Nicotine dependence, unspecified, uncomplicated; F12.90 Cannabis use, unspecified, uncomplicated; Z83.3 Family history of diabetes mellitus; Z82.49 Family history of ischemic heart disease and other diseases of the circulatory system